=== PATIENT | male | born 1995 | race Caucasian/White ===

== ENCOUNTER 2018-12-09 17:40 | Inpatient (IN) | payer OTHER ==
[~2018-12-09] VITALS: Ht 170.2 cm; Wt 65.4 kg
[2018-12-09 19:39] VITALS: BP 146/65; PULSE 82; RESP 18
[2018-12-09] MEDS ORDERED: DOCUSATE SODIUM 100 MG CAP PO PRN (20:00)
[2018-12-09] MEDS ORDERED: ACETAMINOPHEN 325 MG TAB PO PRN (20:00)
[2018-12-09] MEDS ORDERED: BISACODYL (EC) 5 MG TAB PO PRN (20:00)
[2018-12-09] MEDS ORDERED: HYDROmorphONE 0.5 MG/0.5 ML SYG IV PRN (20:00)
[2018-12-09] MEDS ORDERED: NACL 0.9% 3 ML SYG IV SCH (20:00)
[2018-12-09] MEDS ORDERED: HYOSCYAMINE 0.125 MG SUBL TAB PO PRN (20:00)
[2018-12-09] MEDS: SOD CHLORIDE 0.9% 1,000 ML IV SCH (20:18)
--- NOTE | 2018-12-09 21:15 | HP ---
Date/Time of Note Date/Time of Note DATE: 12/09/18 TIME: 21:14 Assessment/Plan VTE Prophylaxis SCD applied (from Ns): Yes Pharmacological prophylaxis: NA/contraindicated Pharm contraindication: low risk/ambulating Assessment/Plan Hospital Course This is a 22-year-old male being admitted to the [facility] floor for observation f or: #1 symptomatic cholelithiasis: Elevated alk phos of 157, will check repeat labs. I do not have a copy of the ultrasound report from the transferring facility. Will order repeat right upper quadrant ultrasound. We will keep the patient n.p.o. at the current time. Pain control. Levsin. Will consult general surgery Dr. Gutierrez. Normal saline fluid hydration #2 microcytic anemia: We will check iron stores #3 thrombocytopenia: Etiology unknown, no signs of bleeding at the current time. Follow-up with outpatient #4 DVT GI prophylaxis: SCDs, no GI prophylaxis indicated Further treatment strategy will be implemented as per the clinical course Result Diagram: 12/09/18200412/09/182004 Results 24hrs Laboratory Tests Test 12/09/18 20:05 White Blood Count 7.5 Red Blood Count 3.78 L Hemoglobin 11.7 L Hematocrit 34.1 L Mean Corpuscular Volume 90.2 Mean Corpuscular Hemoglobin 31.0 Mean Corpuscular Hemoglobin Concent 34.3 Red Cell Distribution Width 13.9 Platelet Count 211 Mean Platelet Volume 10.6 H Immature Granulocytes % 0.300 Neutrophils % 43.4 Lymphocytes % 45.5 Monocytes % 6.8 Eosinophils % 3.5 Basophils % 0.5 Nucleated Red Blood Cells % 0.0 Immature Granulocytes # 0.020 Neutrophils # 3.3 Lymphocytes # 3.4 H Monocytes # 0.5 Eosinophils # 0.3 Basophils # 0.0 Nucleated Red Blood Cells # 0.0 Sodium Level 143 Potassium Level 3.5 Chloride Level 107 Carbon Dioxide Level 26 Anion Gap 10 Blood Urea Nitrogen 8 Creatinine 0.68 Est Glomerular Filtrat Rate mL/min > 60 Glucose Level 90 Calcium Level 8.4 Total Bilirubin 0.8 Direct Bilirubin 0.00 Indirect Bilirubin 0.8 Aspartate Amino Transf (AST/SGOT) 19 Alanine Aminotransferase (ALT/SGPT) 26 Alkaline Phosphatase 61 Total Protein 6.9 Albumin 3.7 Globulin 3.20 Albumin/Globulin Ratio 1.15 HPI/ROS Admit Date/Time Admit Date/Time Dec 09, 2018 at 19:02 Hx of Present Illness Chief complaint: Right upper quadrant pain times 1 month This is a 22-year-old male who transferred from outside hospital where he presented for pain times 1 month. Patient has a history of gallstones. He reports that every time he eats he experiences right upper quadrant pain. The pain has continued to get worse. He apparently had an ultrasound done at an outside hospital which showed gallstones and I do not have the read with me at the current time. He does appear uncomfortable at the current time. Pertinent laboratory findings from the transfer facility, please see chart for full details: CBC: Hemoglobin white blood cells 10.4/hemoglobin 11.9/hematocrit 36.6/platelets 153 MCV 75 alk phos 157 Allergies: NKDA Medications none ROS Const: As per HPI Eyes : No pain discharge or redness or change in visual acuity ENT: No pain, sore throat, congestion, congestion, dysphagia or discharge Respiratory: No shortness of breath, cough, sputum, wheezing, or pleuritic pain Cardiovascular: No chest pain, palpitation, PND, or edema GI : As per HPI Genitourinary: No dysuria, hematuria, flank pain , discharge or CVA tenderness Musculoskeletal: No joint pain, back pain, neck pain, restricted range of motion in neck or joints Skin: No rash, bruising or hives Neuro: No headache, dizziness, syncope, seizure, focal weakness Endocrine: No polyuria, polydipsia, temperature intolerance Psych: No hallucination, depression, anxiety or suicidal ideation PMH/Family/Social Past Medical History Gallstone Medications Current Medications Sodium Chloride 1,000 ml @ 100 mls/hr Q10H IV Last administered on 12/09/18at 20:18; Admin Dose 100 MLS/HR; Start 12/09/18 at 19:55 IV Flush (NS 3 ml) 3 ml PER PROTOCOL IV Last administered on 12/09/18at 20:20; Admin Dose 3 ML; Start 12/09/18 at 20:00 Ondansetron HCl (Zofran Inj) 4 mg Q6H PRN IV NAUSEA/VOMITING; Start 12/09/18 at 20:00 Acetaminophen (Tylenol Tab) 650 mg Q6H PRN PO .PAIN 1-3 OR TEMP; Start 12/09/18 at 20:00 Hydromorphone HCl (Dilaudid) 0.5 mg Q4H PRN IV .SEVERE PAIN 7-10 Last administered on 12/09/18at 20:20; Admin Dose 0.5 MG; Start 12/09/18 at 20:00 Docusate Sodium (Colace) 100 mg Q12H PRN PO .CONSTIPATION; Start 12/09/18 at 20:00 Bisacodyl (Dulcolax) 5 mg DAILY PRN PO .CONSTIPATION; Start 12/09/18 at 20:00 Hyoscyamine (Levsin (Sl)) 0.125 mg Q4H PRN PO GALLSTONE PAIN; Start 12/09/18 at 20:00 Coded Allergies: No Known Allergy (Unverified , 12/09/18) Past Surgical History Appendectomy Family History Significant Family History: no pertinent family hx Social History Alcohol Use: none Smoking Status: Never smoker Drug Use: none Exam/Review of Systems Vital Signs Vitals Vital Signs Date Temp Pulse Resp B/P (MAP) Pulse Ox O2 O2 Flow FiO2 Time Delivery Rate 12/09/18 99.2 82 18 146/65 99 19:39 (92) Exam Exam General: In moderate distress from right upper quadrant pain HEENT: Atraumatic, normocephalic. The pupils are equal, round and reactive. Extraocular motor are intact Neck: Supple with full range of motion. No rigidity or meningismus Chest: Nontender Lungs: Clear to auscultation bilaterally no crackles rales or wheezing Heart: Normal S1-S2, Regular rhythm and rate. No murmur, S3, or S4 Abdomen: Soft, right upper quadrant pain to palpation, normal bowel sounds Extremities: Normal to inspection, no edema no cyanosis Neurologic: Normal mental status, speech normal, cranial nerves II through XII are intact, motor and sensory are intact, no focal weakness SLOAN MDADOX Dec 09, 2018 21:15
[2018-12-09] MEDS: ALPRAZOLAM 0.5 MG TAB PO PRN (21:50)
[2018-12-09 22:05] VITALS: Ht 170.2 cm; Wt 65.4 kg
[2018-12-09] MEDS: HYDROmorphONE 1 MG/ML SYG IV PRN (23:32)
[2018-12-10 01:59] VITALS: BP 109/53; PULSE 60; RESP 20
[2018-12-10] MEDS: HYDROmorphONE 1 MG/ML SYG IV PRN ×6 (03:36→20:38)
[2018-12-10] MEDS: ONDANSETRON 4 MG INJ IV PRN ×3 (03:36→20:37)
[2018-12-10] MEDS: SOD CHLORIDE 0.9% 1,000 ML IV SCH ×2 (05:21→17:00)
[2018-12-10 08:21] VITALS: BP 124/67; PULSE 67; RESP 16
--- NOTE | 2018-12-10 09:13 | CONS ---
Assessment/Plan Assessment/Plan Assessment/Plan (Daily) Cholelithiasis Based on ultrasound and labs, there is no evidence to suggest acute cholecystitis. I am not convinced that his acute symptoms are due to his gallbladder. Clinically he does not have right upper quadrant tenderness. He is quite anxious. HIDA scan for further evaluation. Further recommendations based on HIDA. Consultation Date/Type/Reason Admit Date/Time Dec 09, 2018 at 19:02 Date/Time of Note DATE: 12/10/18 TIME: 09:05 Hx of Present Illness The patient is a 22-year-old male who is had a known history of gallstones for over a year. He is attempted to control his symptoms with diet. However, over the past month he is developed increased pain to his right upper quadrant as well as his left upper quadrant. He does have some radiation to the back. He denies nausea or emesis. Now he states that he has pain, which is severe in nature, every 4 hours. Just comes and goes. He states that he feels his pain across his entire upper abdomen. 14 point review of systems was performed. Pertinent negatives and positive per HPI. Past Medical History Medical History: gallstones Medications Current Medications Sodium Chloride 1,000 ml @ 100 mls/hr Q10H IV Last administered on 12/10/18at 05:21; Admin Dose 100 MLS/HR; Start 12/09/18 at 19:55 IV Flush (NS 3 ml) 3 ml PER PROTOCOL IV Last administered on 12/09/18at 20:20; Admin Dose 3 ML; Start 12/09/18 at 20:00 Ondansetron HCl (Zofran Inj) 4 mg Q6H PRN IV NAUSEA/VOMITING Last administered on 12/10/18at 03:36; Admin Dose 4 MG; Start 12/09/18 at 20:00 Acetaminophen (Tylenol Tab) 650 mg Q6H PRN PO .PAIN 1-3 OR TEMP; Start 12/09/18 at 20:00 Docusate Sodium (Colace) 100 mg Q12H PRN PO .CONSTIPATION; Start 12/09/18 at 20:00 Bisacodyl (Dulcolax) 5 mg DAILY PRN PO .CONSTIPATION; Start 12/09/18 at 20:00 Hyoscyamine (Levsin (Sl)) 0.125 mg Q4H PRN PO GALLSTONE PAIN Last administered on 12/09/18at 21:47; Admin Dose 0.125 MG; Start 12/09/18 at 20:00 Alprazolam (Xanax) 0.5 mg Q12H PRN PO ANXIETY Last administered on 12/09/18at 21:50; Admin Dose 0.5 MG; Start 12/09/18 at 21:30 Hydromorphone HCl (Dilaudid) 1 mg Q3H PRN IV SEVERE PAIN LEVEL 7-10 Last administered on 12/10/18at 07:28; Admin Dose 1 MG; Start 12/09/18 at 23:30 Allergies: Coded Allergies: No Known Allergy (Unverified , 12/09/18) Past Surgical History Past Surgical Hx: no surgical history Family History Significant Family History: no pertinent family hx Social History Alcohol Use: none Smoking Status: Never smoker Drug Use: none Exam/Review of Systems Exam Vitals Vital Signs Date Temp Pulse Resp B/P (MAP) Pulse Ox O2 O2 Flow FiO2 Time Delivery Rate 12/10/18 98.1 67 16 124/67 100 Room Air 08:21 (86) Intake and Output 12/09/18 12/09/18 12/10/18 1414:59 22:59 06:59 IntakeIntake Total 1000 ml BalanceBalance 1000 ml Constitutional: alert, oriented, well developed Psych: no complaints, nl mood/affect Head: normocephalic, atraumatic ENMT: nl external ears & nose, nl lips & teeth, nl nasal mucosa & septum Neck: supple, non-tender Respiratory: clear to auscultation, normal air movement Cardiovascular: regular rate and rhythm, nl pulses Gastrointestinal: soft, other (soft ND, LUQ and RUQ tenderness) Musculoskeletal: nl extremities to inspection Extremities: normal pulses Neurological: MOTEL OPERATOR II-XII intact, nl mental status, nl speech Skin: nl turgor, rash or lesions Lymph: nl lymph nodes Results Result Diagram: 12/10/184 12/10/18 0454 Results 24hrs Laboratory Tests Test 12/09/18 20:05 12/10/18 04:54 White Blood Count 7.5 6.1 Red Blood Count 3.78 L 3.64 L Hemoglobin 11.7 L 11.1 L Hematocrit 34.1 L 33.1 L Mean Corpuscular Volume 90.2 90.9 Mean Corpuscular Hemoglobin 31.0 30.5 Mean Corpuscular Hemoglobin Concent 34.3 33.5 Red Cell Distribution Width 13.9 13.9 Platelet Count 211 185 Mean Platelet Volume 10.6 H 10.9 H Immature Granulocytes % 0.300 0.200 Neutrophils % 43.4 Lymphocytes % 45.5 Monocytes % 6.8 Eosinophils % 3.5 Basophils % 0.5 Nucleated Red Blood Cells % 0.0 0.0 Immature Granulocytes # 0.020 0.010 Neutrophils # 3.3 Lymphocytes # 3.4 H Monocytes # 0.5 Eosinophils # 0.3 Basophils # 0.0 Nucleated Red Blood Cells # 0.0 Sodium Level 143 143 Potassium Level 3.5 3.7 Chloride Level 107 106 Carbon Dioxide Level 26 28 Anion Gap 10 9 Blood Urea Nitrogen 8 8 Creatinine 0.68 0.64 Est Glomerular Filtrat Rate mL/min > 60 > 60 Glucose Level 90 89 Calcium Level 8.4 8.2 L Total Bilirubin 0.8 0.8 Direct Bilirubin 0.00 0.00 Indirect Bilirubin 0.8 0.8 Aspartate Amino Transf (AST/SGOT) 19 18 Alanine Aminotransferase (ALT/SGPT) 26 30 Alkaline Phosphatase 61 56 Total Protein 6.9 6.2 Albumin 3.7 3.2 L Globulin 3.20 3.00 Albumin/Globulin Ratio 1.15 1.06 Hemoglobin A1c 5.1 Triglycerides Level 112 Cholesterol Level 77 L LDL Cholesterol, Calculated 36 HDL Cholesterol 19 L Cholesterol/HDL Ratio 4.0 Imaging Imaging Ultrasound from outside revealed cholelithiasis but no pericholecystic fluid or gallbladder wall thickening Ultrasound performed last night is pending Medications Medication Current Medications Sodium Chloride 1,000 ml @ 100 mls/hr Q10H IV Last administered on 12/10/18at 05:21; Admin Dose 100 MLS/HR; Start 12/09/18 at 19:55 IV Flush (NS 3 ml) 3 ml PER PROTOCOL IV Last administered on 12/09/18at 20:20; Admin Dose 3 ML; Start 12/09/18 at 20:00 Ondansetron HCl (Zofran Inj) 4 mg Q6H PRN IV NAUSEA/VOMITING Last administered on 12/10/18at 03:36; Admin Dose 4 MG; Start 12/09/18 at 20:00 Acetaminophen (Tylenol Tab) 650 mg Q6H PRN PO .PAIN 1-3 OR TEMP; Start 12/09/18 at 20:00 Docusate Sodium (Colace) 100 mg Q12H PRN PO .CONSTIPATION; Start 12/09/18 at 20:00 Bisacodyl (Dulcolax) 5 mg DAILY PRN PO .CONSTIPATION; Start 12/09/18 at 20:00 Hyoscyamine (Levsin (Sl)) 0.125 mg Q4H PRN PO GALLSTONE PAIN Last administered on 12/09/18at 21:47; Admin Dose 0.125 MG; Start 12/09/18 at 20:00 Alprazolam (Xanax) 0.5 mg Q12H PRN PO ANXIETY Last administered on 12/09/18at 21:50; Admin Dose 0.5 MG; Start 12/09/18 at 21:30 Hydromorphone HCl (Dilaudid) 1 mg Q3H PRN IV SEVERE PAIN LEVEL 7-10 Last administered on 12/10/18at 07:28; Admin Dose 1 MG; Start 12/09/18 at 23:30 MEHDI MURCIA MD Dec 10, 2018 09:13
[2018-12-10 14:00] VITALS: BP 138/63; PULSE 83; RESP 18
--- NOTE | 2018-12-10 17:16 | PN ---
Date/Time of Note Date/Time of Note DATE: 12/10/18 TIME: 17:14 Assessment/Plan VTE Prophylaxis SCD applied (from Nsg): Yes Pharmacological prophylaxis: heparin Lines/Catheters IV Catheter Type (from Nrsg): Peripheral IV Urinary Cath still in place: No Assessment/Plan Hospital Course EXAM Curled in position RRR CTAB Abdomen soft, nontender when pressing stethoscope, active but no passive guarding no edema 22 yo male with abdominal pain and gall stones - No lab or imaging findings to suggest gall stones causing problems - HIDA pending - Dr Gutierrez consulted - [facility]ES database reveals 3 opiate prescriptions in last months, perhaps this is drug seeking - Can consider CT A/P Result Diagram: 12/10/18 0454 12/10/18 0454 Results 24hrs Laboratory Tests Test 12/09/18 20:05 12/10/18 04:51 12/10/18 04:54 White Blood Count 7.5 6.1 Red Blood Count 3.78 L 3.64 L Hemoglobin 11.7 L 11.1 L Hematocrit 34.1 L 33.1 L Mean Corpuscular Volume 90.2 90.9 Mean Corpuscular Hemoglobin 31.0 30.5 Mean Corpuscular Hemoglobin Concent 34.3 33.5 Red Cell Distribution Width 13.9 13.9 Platelet Count 211 185 Mean Platelet Volume 10.6 H 10.9 H Immature Granulocytes % 0.300 0.200 Neutrophils % 43.4 Lymphocytes % 45.5 Monocytes % 6.8 Eosinophils % 3.5 Basophils % 0.5 Nucleated Red Blood Cells % 0.0 0.0 Immature Granulocytes # 0.020 0.010 Neutrophils # 3.3 Lymphocytes # 3.4 H Monocytes # 0.5 Eosinophils # 0.3 Basophils # 0.0 Nucleated Red Blood Cells # 0.0 Sodium Level 143 143 Potassium Level 3.5 3.7 Chloride Level 107 106 Carbon Dioxide Level 26 28 Anion Gap 10 9 Blood Urea Nitrogen 8 8 Creatinine 0.68 0.64 Est Glomerular Filtrat Rate mL/min > 60 > 60 Glucose Level 90 89 Calcium Level 8.4 8.2 L Total Bilirubin 0.8 0.8 Direct Bilirubin 0.00 0.00 Indirect Bilirubin 0.8 0.8 Aspartate Amino Transf (AST/SGOT) 19 18 Alanine Aminotransferase (ALT/SGPT) 26 30 Alkaline Phosphatase 61 56 Total Protein 6.9 6.2 Albumin 3.7 3.2 L Globulin 3.20 3.00 Albumin/Globulin Ratio 1.15 1.06 Iron Level 104 Total Iron Binding Capacity 205 L Percent Iron Saturation 51 Ferritin 229.0 Hemoglobin A1c 5.1 Triglycerides Level 112 Cholesterol Level 77 L LDL Cholesterol, Calculated 36 HDL Cholesterol 19 L Cholesterol/HDL Ratio 4.0 Subjective 24 Hr Interval Summary Free Text/Dictation Continues to complain of abdominal pain Exam/Review of Systems Exam Vitals Vital Signs Date Temp Pulse Resp B/P (MAP) Pulse Ox O2 O2 Flow FiO2 Time Delivery Rate 12/10/18 98.1 83 18 138/63 100 Room Air 14:00 (88) Intake and Output 12/09/18 12/09/18 12/10/18 1515:00 23:00 07:00 IntakeIntake Total 1000 ml BalanceBalance 1000 ml Results Results 24hrs Laboratory Tests Test 12/09/18 20:05 12/10/18 04:51 12/10/18 04:54 White Blood Count 7.5 6.1 Red Blood Count 3.78 L 3.64 L Hemoglobin 11.7 L 11.1 L Hematocrit 34.1 L 33.1 L Mean Corpuscular Volume 90.2 90.9 Mean Corpuscular Hemoglobin 31.0 30.5 Mean Corpuscular Hemoglobin Concent 34.3 33.5 Red Cell Distribution Width 13.9 13.9 Platelet Count 211 185 Mean Platelet Volume 10.6 H 10.9 H Immature Granulocytes % 0.300 0.200 Neutrophils % 43.4 Lymphocytes % 45.5 Monocytes % 6.8 Eosinophils % 3.5 Basophils % 0.5 Nucleated Red Blood Cells % 0.0 0.0 Immature Granulocytes # 0.020 0.010 Neutrophils # 3.3 Lymphocytes # 3.4 H Monocytes # 0.5 Eosinophils # 0.3 Basophils # 0.0 Nucleated Red Blood Cells # 0.0 Sodium Level 143 143 Potassium Level 3.5 3.7 Chloride Level 107 106 Carbon Dioxide Level 26 28 Anion Gap 10 9 Blood Urea Nitrogen 8 8 Creatinine 0.68 0.64 Est Glomerular Filtrat Rate mL/min > 60 > 60 Glucose Level 90 89 Calcium Level 8.4 8.2 L Total Bilirubin 0.8 0.8 Direct Bilirubin 0.00 0.00 Indirect Bilirubin 0.8 0.8 Aspartate Amino Transf (AST/SGOT) 19 18 Alanine Aminotransferase (ALT/SGPT) 26 30 Alkaline Phosphatase 61 56 Total Protein 6.9 6.2 Albumin 3.7 3.2 L Globulin 3.20 3.00 Albumin/Globulin Ratio 1.15 1.06 Iron Level 104 Total Iron Binding Capacity 205 L Percent Iron Saturation 51 Ferritin 229.0 Hemoglobin A1c 5.1 Triglycerides Level 112 Cholesterol Level 77 L LDL Cholesterol, Calculated 36 HDL Cholesterol 19 L Cholesterol/HDL Ratio 4.0 Medications Medication Current Medications IV Flush (NS 3 ml) 3 ml PER PROTOCOL IV Last administered on 12/09/18at 20:20; Admin Dose 3 ML; Start 12/09/18 at 20:00 Ondansetron HCl (Zofran Inj) 4 mg Q6H PRN IV NAUSEA/VOMITING Last administered on 12/10/18at 14:05; Admin Dose 4 MG; Start 12/09/18 at 20:00 Acetaminophen (Tylenol Tab) 650 mg Q6H PRN PO .PAIN 1-3 OR TEMP; Start 12/09/18 at 20:00 Docusate Sodium (Colace) 100 mg Q12H PRN PO .CONSTIPATION; Start 12/09/18 at 20:00 Bisacodyl (Dulcolax) 5 mg DAILY PRN PO .CONSTIPATION; Start 12/09/18 at 20:00 Hyoscyamine (Levsin (Sl)) 0.125 mg Q4H PRN PO GALLSTONE PAIN Last administered on 12/09/18at 21:47; Admin Dose 0.125 MG; Start 12/09/18 at 20:00 Alprazolam (Xanax) 0.5 mg Q12H PRN PO ANXIETY Last administered on 12/09/18at 21:50; Admin Dose 0.5 MG; Start 12/09/18 at 21:30 Hydromorphone HCl (Dilaudid) 1 mg Q8H PRN IV SEVERE PAIN LEVEL 7-10; Start 12/10/18 at 17:00 STEFANO BROWER MD Dec 10, 2018 17:16
[2018-12-10 20:29] VITALS: BP 123/57; PULSE 66; RESP 18
[2018-12-11 02:11] VITALS: BP 122/58; PULSE 65
[2018-12-11] MEDS: HYDROmorphONE 1 MG/ML SYG IV PRN ×2 (04:54→12:57)
[2018-12-11 07:45] VITALS: BP 121/57; PULSE 58; RESP 18
--- NOTE | 2018-12-11 11:00 | PDOCDIS ---
Discharge Instructions CONDITION [id number] Patient Condition: [id number] Good HOME CARE INSTRUCTIONS: [id number] Diet Instructions: [id number] Regular ACTIVITY: [id number] Activity Restrictions: [id number] No Restrictions FOLLOW UP/APPOINTMENTS Follow-up Plan FOLLOW UP WITH YOUR PCP IN 1-2 WEEKS MIGUEL EVANGELISTA Dec 11, 2018 11:00
[2018-12-11] MEDS: ALPRAZOLAM 0.5 MG TAB PO PRN (11:08)
[2018-12-11] MEDS ORDERED: MAGNESIUM HYDROXIDE 30ML CUP PO ONE (13:00)
[2018-12-11 14:05] VITALS: BP 118/56; PULSE 75; RESP 20
--- NOTE | 2018-12-11 14:29 | DS ---
Date/Time of Note Date/Time of Note DATE: 12/11/18 TIME: 14:25 Discharge Summary Admission/Discharge Info Admit Date/Time Dec 10, 2018 at 13:56 Discharge Date/Time December 11, 2018 Discharge Diagnosis 1. Cholelithiasis No evidence of sepsis, HIDA scan is negative for acute cholecystitis Clear for DC per surgery CURES database reveals 3 opiate prescriptions in last months, perhaps this is drug seeking 2. Fatty liver Etiology on clear, patient is not obese and denies alcohol or drug abuse Patient Condition: Good Hospital Course Patient is a 22-year-old male with no significant medical history except for abdominal pain times 1 month. Ultrasound of the abdomen showed only cholelithiasis, HIDA scan was negative and patient was clear for DC per surgery. Question was raised about drug-seeking behavior but does not clear to me at this time. Ultrasound of the abdomen also did show fatty liver cause of which is not clear, patient denies alcohol abuse or drug abuse and is not obese and quite young. Patient was stable for DC to follow-up with PCP and a surgeon as an outpatient, on the day of discharge patient's vitals, labs and physical exam are stable. Home Meds No Active Prescriptions or Reported Meds Follow-up Plan FOLLOW UP WITH YOUR PCP IN 1-2 WEEKS Primary Care Provider [facility] Time spent on discharge: > 30 minutes MIGUEL EVANGELISTA Dec 11, 2018 14:29
== END 2018-12-11 16:55 | disposition home or self-care (01) | DRG 446 ==
LOC: INTOOBSV 19:02 → 2NE 19:02 → OBSVTOIN 12-10 13:56
PROVIDERS: ADMIT Internal Medicine; ATTEND Internal Medicine
DX: K80.20 Calculus of gallbladder without cholecystitis without obstruction (principal); D50.9 Iron deficiency anemia, unspecified; D69.6 Thrombocytopenia, unspecified; K76.0 Fatty (change of) liver, not elsewhere classified
CPT/HCPCS: 76705; 78226; 80053; 80061; 82728; 83036; 83540; 85025; A9537; G0378; J1170; J2405; J7030

== ENCOUNTER 2019-03-12 09:11 | Day surgery (SDC) | payer OTHER ==
[~2019-03-12] VITALS: Ht 170.2 cm; Wt 69.7 kg
[2019-03-12 10:12] VITALS: Ht 170.2 cm; Wt 69.7 kg
[2019-03-12] MEDS ORDERED: NORCO (10:18)
[2019-03-12] MEDS ORDERED: PROPOFOL 40 ML ONE (10:55)
--- NOTE | 2019-03-12 11:03 | PREAC ---
Date/Time of Note Date/Time of Note DATE: 03/12/19 TIME: 11:02 Anesthesia Eval and Record Evaluation Time Pre-Procedure Interview DATE: 03/12/19 TIME: 11:02 Age 23 Sex male NPO: 8 hrs Preoperative diagnosis Abdominal pain, change in bowel habit Planned procedure EGD, colonoscopy Past Medical History Past Medical History: None Surgery & Anesthesia Issues No known issue Meds Anticoagulation: No Beta Mitch within 24 hr: No Reason Beta Mitch not given: Pt. not on B-Mitch Reported Medications [[place]] No Conflict Check 03/12/19 Meds reviewed: Yes Allergies Coded Allergies: No Known Allergy (Unverified , 12/09/18) Allergies Reviewed: Yes Labs/Studies Labs Reviewed: Reviewed by anesthesiologist test: N/A Pre-procedure Exam Airway: Adequate mouth opening Mallampati: Mallampati I Teeth: Normal Lung: Normal Heart: Normal ASA Physical Status ASA physical status: 1 Emergency: None Planned Anesthetic General/MAC: MAC Planned Pain Management Parenteral pain med Pre-operative Attestations Prior to commencing anesthesia and surgery, the patient was re-evaluated, there was verification of: *The patient's identity *The results of appropriate recent lab work and preoperative vital signs *The above evaluation not changing prior to induction *Anesthetic plan, risk benefits, alternative and complications discussed with patient/family; questions answered; patient/family understands, accepts and wishes to proceed. DEYSI HILL MD Mar 12, 2019 11:03
[2019-03-12 11:17] VITALS: BP 125/58; PULSE 69; RESP 22
[2019-03-12] MEDS ORDERED: ATROPINE 1 MG/10 ML SYRINGE ONE (11:26)
--- NOTE | 2019-03-12 12:56 | PAC ---
Date/Time of Note Date/Time of Note DATE: 03/12/19 TIME: 12:55 Post-Anesthesia Notes Post-Anesthesia Note Last documented vital signs Vital Signs Date Temp Pulse Resp B/P (MAP) Pulse Ox O2 O2 Flow FiO2 Time Delivery Rate 03/12/19 98.2 69 22 125/58 100 Room Air 11:17 (80) Activity: WNL Respiratory function: WNL Cardiovascular function: WNL Mental status: Baseline Pain reasonably controlled: Yes Hydration appropriate: Yes Nausea/Vomiting absent: Yes Comments BP: 143/82, HR: 79, SpO2: 99, RR: 15, BT: 98.4 DEYSI HILL MD Mar 12, 2019 12:56
== END 2019-03-12 14:36 | disposition home or self-care (01) ==
LOC: GIL 09:11
PROVIDERS: ATTEND Internal Medicine Gastroenterology
DX: R19.4 Change in bowel habit (principal); K64.8 Other hemorrhoids; K29.60 Other gastritis without bleeding
CPT/HCPCS: 43239; 45378; 88305; J0461; Z7610